=== PATIENT | female | born 1995 | race Caucasian/White ===

== ENCOUNTER 2018-10-18 15:06 | Outpatient (CLI) | payer OTHER ==
--- NOTE | 2018-10-20 12:45 | Ultrasound Report ---
Reason: TEST POSITIVE Procedure Date: 10/18/2018 Accession Number: [id number] / [id number] Procedure: US - OB First Trimester CPT Code: FULL RESULT: EXAM: FIRST TRIMESTER OBSTETRIC ULTRASOUND (LESS THAN 11 WEEKS). EXAM DATE: 10/18/2018 03:31 PM. CLINICAL HISTORY: test positive. LMP: Unknown. COMPARISONS: None. TECHNIQUE: Transabdominal and transvaginal ultrasound examination with static image documentation. CLINICAL DATES: EGA 7 weeks 1 day with WENDI 06/05/2019 based on LMP. ASSESSMENT: Gestational Sac: Single intrauterine. Embryo: CRL (crown-rump length) 7.6 mm = 6 weeks 5 days with an WNEDI of 06/08/2019. Cardiac activity: 154 beats per minute. Yolk sac: 3 mm. Amniotic fluid: Not accurately assessed at this gestational age. Early placenta: Not visible at this gestational age. Other: No perigestational fluid collection demonstrated. MATERNAL STRUCTURES: Uterus: Anteverted. Unremarkable. Cervix: Closed. Right Ovary/Adnexa: The ovary measures 4.1 x 2.9 x 3 cm, volume 18.8 cc. Hypoechoic right ovarian 2.6 x 2 x 2.3 cm cyst. No mural nodules or thickened septations or other concerning features are noted. Left Ovary/Adnexa: The ovary measures 3.2 x 1.3 x 1.3 cm, volume 2.8 cc. Unremarkable. Free Fluid: Small volume free fluid noted in the pelvis. Other: None. IMPRESSION: 1. Single viable intrauterine at EGA 6 weeks 5 days with WENDI 06/08/2019 based on crown-rump length, which is concordant with clinical dates. 2. Assigned dating is WENDI 06/05/2019 based on LMP. 3. No complications such as a subchorionic hemorrhage. 4. 2.6 cm right ovarian hypoechoic cyst. No concerning features. Otherwise, both ovaries and adnexa are normal. RADIA
== END 2018-10-18 15:07 | disposition home or self-care (01) ==
LOC: DI 15:06
PROVIDERS: ATTEND Nurse Practitioner Obstetrics & Gynecology
DX: Z32.01 Encounter for pregnancy test, result positive (principal)
CPT/HCPCS: 76801

== ENCOUNTER 2018-12-18 14:40 | Emergency (ER) | payer OTHER ==
[2018-12-18 14:47] VITALS: BP 127/67
--- NOTE | 2018-12-18 14:48 | ED Physician Documentation ---
History of Present Illness - Stated complaint Stated Complaint: SOA/CHEST TIGHTNESS/16 WKS PREG - Chief complaint Chief Complaint: Abd Pain - Additonal information Additional information: Patient is a 23-year-old female, G1, P0 approximately 16 weeks presenting with gradual onset of chest tightness and shortness of breath, particularly with laying down. Patient denies acid reflux-like symptoms, other chest pain, pleuritic chest pain, active cough, fever. Patient also denies URI symptoms, abdominal pain, vaginal bleeding or discharge, urinary or stool changes. Patient reports that she contacted her PEDIATRIC SOCIAL WORKER who believe this to be related to progressing in her , but came to the ED for further evaluation. No other improving or worsening factors noted. Review of Systems Constitutional: denies: Fever Nose: denies: Rhinorrhea / runny nose, Congestion Throat: denies: Sore throat Cardiac: denies: Chest pain / pressure Respiratory: reports: Dyspnea. denies: Cough GI: denies: Abdominal Pain, Nausea, Vomiting, Diarrhea : denies: Dysuria, Vaginal bleeding PD PAST MEDICAL HISTORY - Past Medical History Past Medical History: No - Past Surgical History Past Surgical History: No - Allergies Allergies/Adverse Reactions: Allergies Allergy/AdvReac Type Severity Reaction Status Date / Time No Known Drug Allergies Allergy Verified 12/18/18 14:47 PD ED PE NORMAL - Vitals Vital signs reviewed: Yes - General General: Alert and oriented X 3, No acute distress, Well developed/nourished - HEENT HEENT: Atraumatic, Moist mucous membranes - Neck Neck: Supple, no meningeal sign - Cardiac Cardiac: RRR, No murmur - Respiratory Respiratory: No respiratory distress, Clear bilaterally - Abdomen Abdomen: Normal bowel sounds, Soft, Non tender, Non distended (Nongravid) - Derm Derm: Normal color, Warm and dry, No rash - Extremities Extremities: No deformity, No tenderness to palpate, No edema - Neuro Neuro: Alert and oriented X 3, No motor deficit, No sensory deficit - Psych Psych: Normal mood, Normal affect Results - Vitals Vitals: Vital Signs - 24 hr 12/18/18 14:43 Temperature 36.8 C Heart Rate 79 Respiratory 19 Rate Blood Pressure 127/67 O2 Saturation 100 Oxygen O2 Source Room air PD MEDICAL DECISION MAKING - ED course Complexity details: considered differential, d/w patient, d/w family ED course: Patient presenting with symptoms relating to normal second trimester . Do not have high suspicion for abnormalities related to the fetus including placental abruption or previa, threatened , miscarriage, or other infection. Do not have high suspicion for gestational hypertension, eclampsia, preeclampsia, help syndrome or other emergent pathology. Do not have high suspicion for sinusitis, URI, pneumonia, ACS, OH, unstable angina, dissection, aneurysm, PE, but considered. At this time, do not feel the risk of imaging is worth the benefit and discussed this at length with patient who also agrees. Additionally, do not feel patient requires other invasive testing. Advised on supportive cares, return precautions, and appropriate follow-up. Departure - Departure Disposition: 01 Home, Self Care Clinical Impression: related condition in second trimester Condition: Good Instructions: Preg 2nd Trimester Follow-Up: Chloe Lema MD [Primary Care Provider] - Within 3 Days Comments: Please continue home medications as instructed including vitamins. Recommend sleeping propped up or with body pillow to help with breathing. Follow-up with PEDIATRIC SOCIAL WORKER the next 2 to 3 days and return to ED sooner if experience worsening symptoms or have other concerns.
== END 2018-12-18 15:18 | disposition home or self-care (01) ==
LOC: ED 14:40
DX: O99.89 Other specified diseases and conditions complicating pregnancy, childbirth and the puerperium (principal); R07.89 Other chest pain; R06.02 Shortness of breath; Z3A.16 16 weeks gestation of pregnancy
CPT/HCPCS: 99282

== ENCOUNTER 2019-01-17 08:36 | Outpatient (CLI) | payer OTHER ==
--- NOTE | 2019-01-20 09:21 | Ultrasound Report ---
Reason: ENCOUNTER FOR OTHER SPECIFIED SCREENING Procedure Date: 01/17/2019 Accession Number: [id number] / [id number] Procedure: US - OB Detailed Eval CPT Code: FULL RESULT: EXAM: COMPLETE OBSTETRICAL ULTRASOUND EXAM DATE: 01/17/2019 12:08 PM. CLINICAL HISTORY: anatomic survey. COMPARISON: OB FIRST TRIMESTER 10/18/2018 3:31 PM. TECHNIQUE: Real-time sonographic evaluation of the fetus performed by the product ambassador. Multiple b2b outside sales representative static images were saved for review. Additional transvaginal imaging to more accurately evaluate cervical length/placental position/etc. DATING: Established EGA 19 weeks 5 days with WENDI 06/08/2019 based on working due date. EGA 20 weeks 1 day with WENDI 06/05/2019 based on LMP. EGA 19 weeks 4 days with WENDI 06/09/2019 based on the current ultrasound. GENERAL EVALUATION Coe . Cardiac activity: 154 bpm. movement: Visualized. Presentation: Breech Placenta: Posterior position. No evidence for previa. Umbilical cord: 3 vessel cord. Central placental cord origin. Amniotic fluid: Subjectively normal. MVP 4.5 and JUDSON 11.5 cm. BIOMETRY Bi-Parietal Diameter (BPD): 4.1 cm, 18 weeks 4 days Head Circumference (HC): 17.2 cm, 19 weeks 5 days Abdominal Circumference (AC): 15.0 cm, 20 weeks 2 days Femur Length (FL): 3.3 cm, 20 weeks 1 day Estimated Weight: 333 g, 69th percentile for 19 weeks 5 days. ANATOMY The intracranial structures, profile, face/nose/lips, spine, 4 chamber heart, stomach, abdominal wall and cord insertion, diaphragm, kidneys, bladder, and extremities were visualized and demonstrate no abnormality. Cardiac outflow tracts were not adequately visualized. MATERNAL STRUCTURES Uterus: Unremarkable. Cervix: Long and closed. Transabdominal length 3.7 cm. Right ovary/adnexa: 1.5 cm cystic structure. Left ovary/adnexa: Unremarkable. Free fluid: None. IMPRESSION: 1. Coe live intrauterine with gestational age 19 weeks 5 days based on working due date. 2. Estimated weight is within expected limits for assigned dating. 3. Incomplete anatomic survey due to position. Cardiac outflow tracts are not adequately visualized. RADIA
== END 2019-01-17 08:37 | disposition home or self-care (01) ==
LOC: DI 08:36
PROVIDERS: ATTEND Nurse Practitioner Obstetrics & Gynecology
DX: Z36.89 Encounter for other specified antenatal screening (principal)
CPT/HCPCS: 76811

== ENCOUNTER 2019-01-28 12:29 | Outpatient (CLI) | payer OTHER ==
[2019-01-28 12:52] LABS: BASOPHILS # (AUTO) 0.1 10^3/uL (0.0-0.1); BASOPHILS % (AUTO) 0.4 %; EOSINOPHILS # (AUTO) 0.3 10^3/uL (0.0-0.7); EOSINOPHILS % (AUTO) 2.7 %; LYMPHOCYTES # (AUTO) 1.6 10^3/uL (1.5-3.5); LYMPHOCYTES % (AUTO) 12.9 %; MEAN CORPUSCULAR HEMOGLOBIN 31.4 pg (27.0-31.0); MEAN CORPUSCULAR HGB CONC 33.1 g/dL (32.0-36.0); MEAN CORPUSCULAR VOLUME 94.9 fL (81.0-99.0); MEAN PLATELET VOLUME 10.5 fL (7.9-10.8); MONOCYTES # (AUTO) 1.1 10^3/uL (0.0-1.0); MONOCYTES % (AUTO) 8.5 %; NEUTROPHILS # (AUTO) 9.3 10^3/uL (1.5-6.6); NEUTROPHILS % (AUTO) 74.6 %; PLT - PLATELET COUNT 220 10^3/uL (130-450); RED CELL DISTRIBUTION WIDTH 12.8 % (12.0-15.0); WHITE BLOOD COUNT 12.5 x10^3/uL (4.8-10.8)
[2019-01-28 12:53] LABS: MUDS CUTOFF CONCENTRATIONS CUTOFF CONC BELOW:
[2019-01-28 12:57] LABS: BILIRUBIN,URINE NEGATIVE (NEGATIVE); GLUCOSE, URINE (UA) NEGATIVE (NEGATIVE); KETONES,URINE (UA) NEGATIVE (NEGATIVE); LEUKOCYTE ESTERASE, URINE NEGATIVE (NEGATIVE); NITRITE,URINE NEGATIVE (NEGATIVE); OCCULT BLOOD,URINE NEGATIVE (NEGATIVE); PROTEIN,URINE NEGATIVE (NEGATIVE); UROBILINOGEN,URINE 0.2 (NORMAL) E.U./dL (NORMAL)
[2019-01-28 12:59] LABS: CLARITY,URINE CLEAR (CLEAR)
[2019-01-28 13:08] LABS: BACTERIA,URINE Rare /HPF (None Seen); RBC,URINE 0-5 /HPF (0-5); SQUAMOUS EPITHELIAL CELL,UR FEW Squamous (<= Few)
[2019-01-28 13:09] LABS: AMPHETAMINE SCREEN,URINE NEGATIVE (NEGATIVE); BENZODIAZEPINES SCREEN, URINE NEGATIVE (NEGATIVE); COCAINE SCREEN URINE NEGATIVE (NEGATIVE); METHADONE SCREEN, URINE NEGATIVE (NEGATIVE); METHAMPHETAMINES SCREEN, URINE NEGATIVE (NEGATIVE); OPIATE SCREEN, URINE NEGATIVE (NEGATIVE); OXYCODONE SCREEN, URINE NEGATIVE (NEGATIVE); PROPOXYPHENE SCREEN, URINE NEGATIVE (NEGATIVE); TRICYCLIC ANTIDEPRESSANT,URINE NEGATIVE (NEGATIVE)
[2019-01-29 11:31] LABS: HEPATITIS B SURFACE ANTIGEN NON-REACTIVE (NON-REACTIVE); HEPATITIS C ANTIBODY NON-REACTIVE (NON-REACTIVE)
[2019-01-29 15:16] LABS: HIV AG/AB 4TH GEN NON-REACTIVE (NON-REACTIVE)
== END 2019-01-28 12:30 | disposition home or self-care (01) ==
LOC: LAB 12:29
PROVIDERS: ATTEND Obstetrics & Gynecology
DX: Z34.00 Encounter for supervision of normal first pregnancy, unspecified trimester (principal); Z36.8A Encounter for antenatal screening for other genetic defects
CPT/HCPCS: 36415; 80306; 81001; 81511; 81599; 85025; 86592; 86762; 86803; 86850; 86900; 86901; 87086; 87340; 87389

== ENCOUNTER 2019-02-10 15:01 | Outpatient (CLI) | payer OTHER ==
--- NOTE | 2019-02-12 10:55 | Ultrasound Report ---
Reason: SUPERVISON NORMAL FIRST , COMPLETION FAS Procedure Date: 02/10/2019 Accession Number: [id number] / [id number] Procedure: US - OB F/U or Repeat CPT Code: FULL RESULT: EXAM: FOLLOW-UP OBSTETRICAL ULTRASOUND EXAM DATE: 02/10/2019 03:36 PM. CLINICAL HISTORY: SUPERVISION NORMAL FIRST , COMPLETION FAS. COMPARISON: OB DETAILED EVAL 01/17/2019 9:10 AM. TECHNIQUE: Real-time sonographic evaluation of the fetus performed by the motion picture projectionist apprentice. Multiple front office representative static images were saved for review. DATING: Established EGA 23 weeks, 4 days with WENDI 06/05/2019 based on LMP. EGA 23 weeks, 1 day with WENDI 06/08/2019 based on prior ultrasound. GENERAL EVALUATION Coe . Cardiac activity: 157 bpm. movement: Visualized. Presentation: Cephalic. Placenta: Posterior position. Amniotic fluid: Normal. JUDSON 14.6 cm. MVP 4.3 cm. BIOMETRY: Not measured today. ANATOMY Right ventricular outflow tract was not well seen due to positioning. Left ventricular outflow tract, 4 chamber view of heart and aortic arch appeared unremarkable. MATERNAL STRUCTURES No abnormality evident. IMPRESSION: 1. Coe live intrauterine with gestational age 23 weeks, 4 days based on LMP. 2. Left ventricular outflow tract, 4 chamber view of heart and aortic arch appeared unremarkable. 3. anatomic survey remains incomplete. Right ventricular outflow tract was not well seen due to positioning. RADIA
== END 2019-02-10 15:02 | disposition home or self-care (01) ==
LOC: DI 15:01
PROVIDERS: ATTEND Obstetrics & Gynecology
DX: Z34.00 Encounter for supervision of normal first pregnancy, unspecified trimester (principal)
CPT/HCPCS: 76816

== ENCOUNTER 2019-03-04 15:46 | Outpatient (CLI) | payer OTHER ==
--- NOTE | 2019-03-06 08:15 | Ultrasound Report ---
Reason: SCREENING, F/U TO EVAL RVOT Procedure Date: 03/04/2019 Accession Number: [id number] / [id number] Procedure: US - OB F/U or Repeat CPT Code: FULL RESULT: EXAM: FOLLOW-UP OBSTETRICAL ULTRASOUND EXAM DATE: 03/04/2019 04:24 PM. CLINICAL HISTORY: SCREENING, F/U TO EVAL RVOT. COMPARISON: None. TECHNIQUE: Real-time sonographic evaluation of the fetus performed by the room service food service attendant. Additional transvaginal imaging to more accurately evaluate cervical length/placental position/etc. Multiple reimbursement representative static images were saved for review. DATING: Established EGA 26 weeks 2 days with WENDI 06/08/2019 based on reported dating from provider. EGA 27 weeks 1 day with WENDI 06/02/2019 based on the current ultrasound. GENERAL EVALUATION Coe . Cardiac activity: 140 bpm. movement: Visualized. Presentation: Cephalic. Placenta: Posterior fundal position. Amniotic fluid: Normal. JUDSON 12.4 cm. MVP 4.5 cm. BIOMETRY Bi-Parietal Diameter (BPD): 6.7 cm, 27 weeks 0 days Head Circumference (HC): 25.3 cm, 27 weeks 3 days Abdominal Circumference (AC): 22.7 cm, 27 weeks 1 day Femur Length (FL): 5.1 cm, 27 weeks 1 day Estimated Weight: 1037 g, 76 percentile for weeks/days. ANATOMY Four-chamber heart, LVOT, RVOT normal. No pericardial effusion IMPRESSION: 1. Coe live intrauterine with gestational age 26 weeks 2 days based on reported dating 2. Estimated weight is within expected limits for assigned dating. 3. Follow-up showed normal cardiac exam including four-chamber heart, LVOT, RVOT. DELANEY
== END 2019-03-04 15:47 | disposition home or self-care (01) ==
LOC: DI 15:46
PROVIDERS: ATTEND Nurse Practitioner Obstetrics & Gynecology
DX: Z36.89 Encounter for other specified antenatal screening (principal)
CPT/HCPCS: 76816

== ENCOUNTER 2019-03-05 10:56 | Outpatient (CLI) | payer OTHER ==
[2019-03-05 12:27] LABS: HGB - HEMOGLOBIN 9.8 g/dL (12.0-16.0); MEAN CORPUSCULAR HEMOGLOBIN 29.3 pg (27.0-31.0); MEAN CORPUSCULAR HGB CONC 31.6 g/dL (32.0-36.0); MEAN CORPUSCULAR VOLUME 92.8 fL (81.0-99.0); MEAN PLATELET VOLUME 10.3 fL (7.9-10.8); RED BLOOD COUNT 3.34 10^6/uL (4.20-5.40); RED CELL DISTRIBUTION WIDTH 12.3 % (12.0-15.0); WHITE BLOOD COUNT 11.1 x10^3/uL (4.8-10.8)
== END 2019-03-05 10:57 | disposition home or self-care (01) ==
LOC: LAB 10:56
PROVIDERS: ATTEND Nurse Practitioner Obstetrics & Gynecology
DX: Z36.89 Encounter for other specified antenatal screening (principal)
CPT/HCPCS: 36415; 82950; 85027; 86850

== ENCOUNTER 2019-04-01 09:00 | Outpatient (CLI) | payer OTHER | END 2019-04-01 23:59 | disposition home or self-care (01) | LOC: LAB.R 09:00 | PROVIDERS: ATTEND Nurse Practitioner Obstetrics & Gynecology | DX: R82.79 Other abnormal findings on microbiological examination of urine (principal) | CPT/HCPCS: 87086 ==

== ENCOUNTER 2019-04-07 12:27 | Outpatient (CLI) | payer OTHER | END 2019-04-07 12:28 | disposition home or self-care (01) | LOC: LAB 12:27 | PROVIDERS: ATTEND Nurse Practitioner Obstetrics & Gynecology | DX: R82.79 Other abnormal findings on microbiological examination of urine (principal) | CPT/HCPCS: 87086 ==

== ENCOUNTER 2019-05-12 08:00 | Outpatient (CLI) | payer OTHER ==
[2019-05-14 18:24] LABS: TRICHOMONAS VAGINALIS DNA NEGATIVE (NEGATIVE)
== END 2019-05-12 23:59 | disposition home or self-care (01) ==
LOC: LAB.R 08:00
PROVIDERS: ATTEND Nurse Practitioner Obstetrics & Gynecology
DX: Z36.85 Encounter for antenatal screening for Streptococcus B (principal)
CPT/HCPCS: 87491; 87591; 87661; 87797

== ENCOUNTER 2019-05-27 09:30 | Outpatient (CLI) | payer OTHER ==
[2019-05-27 16:49] LABS: BILIRUBIN,URINE NEGATIVE (NEGATIVE); GLUCOSE, URINE (UA) NEGATIVE (NEGATIVE); KETONES,URINE (UA) NEGATIVE (NEGATIVE); LEUKOCYTE ESTERASE, URINE MODERATE (NEGATIVE); NITRITE,URINE NEGATIVE (NEGATIVE); OCCULT BLOOD,URINE NEGATIVE (NEGATIVE); PROTEIN,URINE NEGATIVE (NEGATIVE); UROBILINOGEN,URINE 0.2 (NORMAL) E.U./dL (NORMAL)
[2019-05-27 16:50] LABS: CLARITY,URINE HAZY (CLEAR)
[2019-05-27 17:31] LABS: AMORPHOUS SEDIMENT,UR Rare /LPF; BACTERIA,URINE Many /HPF (None Seen); RBC,URINE 0-5 /HPF (0-5); SQUAMOUS EPITHELIAL CELL,UR MANY Squamous (<= Few)
== END 2019-05-27 23:59 | disposition home or self-care (01) ==
LOC: LAB.R 09:30
PROVIDERS: ATTEND Obstetrics & Gynecology
DX: Z34.00 Encounter for supervision of normal first pregnancy, unspecified trimester (principal); R30.0 Dysuria
CPT/HCPCS: 81001; 81003; 87086

== ENCOUNTER 2019-06-03 09:40 | Outpatient (CLI) | payer OTHER ==
[2019-06-03 09:54] VITALS: BP 127/77
--- NOTE | 2019-06-04 13:27 | PROCEDURE REPORT ---
- HPI Current [facility] 06/08/19 Gestation 39 Weeks and 2 Days 1 Para 0 Vital Signs Temperature 36.8 C 06/03/19 09:50 Heart Rate 87 06/03/19 09:50 Respiratory Rate 18 06/03/19 09:50 Blood Pressure 127/77 06/03/19 09:50 Temperature 36.8 C 06/03/19 09:50 Heart Rate 87 06/03/19 09:50 Respiratory Rate 18 06/03/19 09:50 Blood Pressure 127/77 06/03/19 09:50 O2 Saturation - NST Procedure NST Procedure Start Date 06/03/19 Start Time 09:47 Stop Time 10:25 Vibroacoustic Stimulation Used Yes Patient States Movement Yes - Results and Plan Plan: - HPI Diagnosis/Indication for NST: Decreased movement - NST Procedure NST Procedure Start Time 09:47 Stop Time 10:25 - Results and Plan Findings/Impression: NST reactive. Baseline 145, moderate variability, + accels, no decels Plan: Jian presents to [facility] as directed from [facility] following her routine visit at which time she reported significantly decreased movement over the last 24 hours. She states she is feeling some movement and is feeling like her abdomen is somewhat numb due to stretching. She has not kept her hands on her abdomen in attempt to palpate movement. NST performed 06/03/2019. NST read 06/03/2019 NST reactive. Baseline 145, moderate variability, + accels, no decels. Pt released home with precautions. Advised kick counting and reviewed when to return. Pt verbalized understanding and agrees to above plan. She denies further questions or concerns at this time. FINAL DIAGNOSIS: Decreased movement at term gestation.
== END 2019-06-03 10:40 | disposition home or self-care (01) ==
LOC: WFO 09:40 → FBP 09:42 → WFO 10:40
PROVIDERS: ATTEND Nurse Practitioner Obstetrics & Gynecology
DX: O36.8130 Decreased fetal movements, third trimester, not applicable or unspecified (principal); Z3A.39 39 weeks gestation of pregnancy
CPT/HCPCS: 59025

== ENCOUNTER 2019-06-03 20:21 | Inpatient (IN) | payer OTHER ==
[2019-06-03] MEDS ORDERED: OXYTOCIN/DEXTROSE 5 % 30 UNIT/500 ML BAG IV ONE (21:08)
[2019-06-03] MEDS ORDERED: LIDOCAINE-MPF 1% 30 ML VIAL ONE (22:11)
[2019-06-03] MEDS ORDERED: SODIUM CHLORIDE FLUSH 0.9% 10 ML SYRINGE IVP PRN (22:50)
[2019-06-03] MEDS ORDERED: HYDROCORTISONE 1% CREAM 28 GM TUBE PR PRN (22:52)
[2019-06-03] MEDS ORDERED: WITCH HAZEL/GLYCERIN 1 PAD TOP PRN (22:52)
[2019-06-03] MEDS ORDERED: LACTATED RINGERS 1,000 ML IV SCH (23:00)
--- NOTE | 2019-06-03 23:04 | HISTORY & PHYSICAL EXAMINATION ---
Admit History - Visit Reason Visit Reason: Contractions, Membranes rupture - : 1 Parity: 0 Premature: 0 Ectopic: 0 : 0 Care: positive: [facility] Risk/History: positive: None Complications This : positive: None Smoking Status: Never smoker - Mother's Labs Mother's Blood Type: positive: O Mother's RH: positive: Positive GBS: positive: Group B Step Negative Rubella Status: positive: Immune Meds/Allgy - Allergies Allergies/Adverse Reactions: Allergies Allergy/AdvReac Type Severity Reaction Status Date / Time No Known Drug Allergies Allergy Verified 12/18/18 14:47 Review of Systems - Constitutional Constitutional: denies: Fatigue, Fever, Chills, Malaise - Eyes Eyes: denies: Blurred vision, Spots in vision, Dipolpia - Cardiovascular Cariovascular: denies: Chest pain, Edema - Respiratory Respiratory: denies: SOB at rest - Gastrointestinal Gastrointestinal: denies: Abdominal pain, Abdominal distention, Constipation, Diarrhea, Nausea, Vomiting - Integumentary Integumentary: denies: Rash, Pruritis - Neurological Neurological: denies: Headache Physical - Abdominal Exam Contraction Frequency (min/apart): 2-4 Contraction Intensity: positive: Strong Uterine Resting Tone: positive: Soft - Monitoring Heart Rate Baseline: 135 Strip Review: positive: Category I - Presentation Presentation: positive: Vertex - Vaginal Exam Membranes: positive: Membranes ruptured Dilation (in cm): 8 Effacement (%): 100 Station: positive: 0 Cervical Position: positive: Anterior - Speculum Exam Speculum Exam Performed: positive: No Findings: positive: Gross leak Plan for Labor - Plan For Labor I expect patient to be DC'd or transferred within 96 hours.: Yes Plan for Labor: HPI: Jian is a 24yo @ 39.2wks gestation by 6.5wk U/S presents to [facility] with c/o contractions which have increased in frequency and intensity since 1000 this afternoon. She reports the contractions really began to moss picker at approximately 1800 this evening. Reports vaginal leakage of clear fluid at 2000. Upon arrival she was noted to have grossly ruptured membranes and cervix was 8/100/0, vertex. She was admitted to [facility] for expectant management. She has been a patient of [facility] through the duration of her which has been uncomplicated. Dating Criteria: LMP unknown Initial ultrasound at 6.5wks gestation Serial exams: agree OB Hx: G1: Current PMHx: Surgical Hx: Social Hx: Family Hx: course: Initial U/S: 10/18/2018 @ 6.5wks gives WENDI 06/08/2019. LMP unknown. O pos/Rubella immune Gentic testing: Quad screen negative FAS: 01/17/19 WNL with the exception of poor visualization of cardiac outflow tracts., 3VC. Posterior placenta, no previa. Size c/w dating. 02/10/2019 f/u left outflow tract visualized and WNL. Right outflow tract not well visualized. 03/04/2019 f/u WNL. All cardiac structures visualized and WNL. Glucola WNL Influenza 02/25/2019 TDAP 03/18/2019 GBS & GC/CT neg x 3 HSV: denies Breast pump Rx provided MOD: Anticipate Physical Exam: Normocephalic, atraumatic Heart RRR w/o M/G/R Lungs CTAB Abdomen gravid, soft, nontender SVE 8/100/0, vertex Grossly ruptured membranes with moderate amount of clear fluid Contractions palpate strong every 2-4 minutes with soft resting tone Bilateral LE's no edema present and supportive at the bedside Assessment: 24yo @ 39.2 wks gestation by 6.5wk U/S Active labor GBS neg Plan: Admit to [facility] for expectant managment Continuous monitoring Anticipate
--- NOTE | 2019-06-03 23:12 | DELIVERY NOTE ---
Delivery Note - Labor Labor: positive: Spontaneous - Delivery Method Delivery Method: positive: Spontaneous vaginal delivery - Presentation Presentation: positive: Vertex, NICK - left occiput anterior - Nuchal Cord Nuchal Cord: positive: None - Amniotic Fluid Description Amniotic Fluid Description: positive: Clear - Episiotomy Type Episiotomy Type: positive: None - Laceration Laceration: positive: 2nd degree, Vaginal - Suture Suture Type: positive: Vicryl Suture Size: positive: 2-0 - Delivery Outcome Delivery Outcome: positive: Livebirth - [place]: positive: Placed in direct skin contact with mother, Bulb syringe, Stimulated, Warmed, [place] used [place] sex: positive: Male - Cord Cord: positive: 3 vessels - Estimated Blood Loss Estimated Blood Loss (in cc): 250 - Post Delivery Events Post Delivery Events: positive: No post delivery events - Delivery Comments (Free Text/Narrative) Delivery Comments (Free Text/Narrative): Labor: This 24yo @ 39.2wks gestation by 6.5wk U/S presented to [facility] at 2024 on 06/03/2019 in active labor with grossly rupture membranes which occurred at 1999. Cervix was 8/100/0, vertex. FHR pattern demonstrated Category I pattern throughout labor. Normal labor course. Patient progressed to complete with anterior lip and spontaneous urge to push at 2107 which was reduced and c/c/+1 a t 2118. : Normal of viable male infant on 06/03/2019 @ 2200. No nuchal cord. The was stimulated, dried, and placed skin to skin. 's were 9/9 at 1 and 5 minutes respectively. The umbilical cord was allowed to stop pulsating at which time it was doubly clamped by CNM and cut by FOB. Pitocin administered via IV for hemostasis. Cord blood was obtained. Placenta delivered spontaneously and intact at 2208. 3VC. EBL 250mL. Fourth stage: Uterine fundus firm and there is no excessive bleeding. The perineum, vagina, and cervix were inspected and found to have 2nd degree vaginal laceration which was repaired using a 2-[address]-1 needle in standard fashion under sterile conditions. Vaginal examination following repair completed and tissues well approximated. initiated. Family bonding well. Both mother and baby were left in stable condition.
[2019-06-04] MEDS ORDERED: SODIUM CHLORIDE FLUSH 0.9% 10 ML SYRINGE IVP SCH (01:00)
[2019-06-04] MEDS: ACETAMINOPHEN 500 MG TABLET PO SCH ×3 (01:48→22:44)
[2019-06-04] MEDS: IBUPROFEN 800 MG TABLET PO SCH ×3 (01:48→22:44)
[2019-06-04] MEDS ORDERED: LIDOCAINE 1% 2 ML VIAL SUBQ ONE (05:32)
--- NOTE | 2019-06-04 06:18 | PROVIDER PROGRESS NOTE ---
Subjective - Subjective Subjective: S: Bonding well with baby. Struggling slightly with and getting baby to latch. Has been given the nipple shield which she feels is helping to get a deeper latch. Has attempted to feed without success twice throughout the night and is currently feeding with baby latched and actively nursing currently. She reports slight perineal discomfort but is improving and feels her pain is well controlled with oral medications. She states her bleeding is like a menstrual cycle with one small clot noted. Her mood is good and she states she is overall feeling very well. Plans to utilize the help of nursing staff today with . O: Heart RRR w/o M/G/R, lungs CTAB, abdomen soft and nontender with fundus firm at U. Light lochia rubra. Bilateral LE's no edema. BP 125/65, HR 86, T 37.1, RR 18 A: 24yo -->P1 PPD#1 s/p TSVD of viable male 2nd degree vaginal laceration - intact P: Continue routine pp care and medications. Special attention to today. Evaluate for discharge home tomorrow. Pt verbalized understanding and denies questions or concerns at this time. Objective - Vital Signs/Intake & Output Vital Signs: Vital Signs x48h Temp Pulse Resp BP Pulse Ox 06/04/19 03:25 37.1 C 86 18 125/65 97
[2019-06-04] MEDS: DOCUSATE SODIUM 100 MG CAPSULE PO SCH ×2 (09:44→22:21)
--- NOTE | 2019-06-04 10:11 | PROCEDURE REPORT ---
- HPI Diagnosis/Indication for NST: Decreased movement - NST Procedure NST Procedure Start Time 09:47 Stop Time 10:25 - Results and Plan Findings/Impression: NST reactive. Baseline 145, moderate variability, + accels, no decels Plan: Jian presents to [facility] as directed from [facility] following her routine visit at which time she reported significantly decreased movement over the last 24 hours. She states she is feeling some movement and is feeling like her abdomen is somewhat numb due to stretching. She has not kept her hands on her abdomen in attempt to palpate movement. NST performed 06/03/2019. NST read 06/03/2019 NST reactive. Baseline 145, moderate variability, + accels, no decels. Pt released home with precautions. Advised kick counting and reviewed when to return. Pt verbalized understanding and agrees to above plan. She denies further questions or concerns at this time. FINAL DIAGNOSIS: Decreased movement at term gestation.
--- NOTE | 2019-06-04 10:12 | HISTORY & PHYSICAL EXAMINATION ---
Admit History - Visit Reason Visit Reason: Contractions, Membranes rupture - : 1 Parity: 0 Premature: 0 Ectopic: 0 : 0 Care: positive: [facility] Risk/History: positive: None Complications This : positive: None Smoking Status: Never smoker - Mother's Labs Mother's Blood Type: positive: O Mother's RH: positive: Positive GBS: positive: Group B Step Negative Rubella Status: positive: Immune Meds/Allgy - Allergies Allergies/Adverse Reactions: Allergies Allergy/AdvReac Type Severity Reaction Status Date / Time No Known Drug Allergies Allergy Verified 12/18/18 14:47 Review of Systems - Constitutional Constitutional: denies: Fatigue, Fever, Chills, Malaise - Eyes Eyes: denies: Blurred vision, Spots in vision, Dipolpia - Cardiovascular Cariovascular: denies: Chest pain, Edema - Respiratory Respiratory: denies: SOB at rest - Gastrointestinal Gastrointestinal: denies: Change in bowel habits, Nausea, Vomiting - Integumentary Integumentary: denies: Rash, Pruritis - Neurological Neurological: denies: Headache Physical - Abdominal Exam Contraction Frequency (min/apart): 2-4 Contraction Intensity: positive: Strong Uterine Resting Tone: positive: Soft - Monitoring Heart Rate Baseline: 140 Strip Review: positive: Category I - Presentation Presentation: positive: Vertex - Vaginal Exam Membranes: positive: Membranes ruptured Dilation (in cm): 8 Effacement (%): 100 Station: positive: 0 Cervical Position: positive: Anterior - Speculum Exam Speculum Exam Performed: positive: No Findings: positive: Gross leak Plan for Labor - Plan For Labor I expect patient to be DC'd or transferred within 96 hours.: Yes
--- NOTE | 2019-06-05 09:05 | Discharge Plan ---
Discharge Plan Problem Reviewed?: Yes Disposition: Home, Self Care Condition: Good Diet: Regular Activity Restrictions: No Restrictions Shower Restrictions: No Driving Restrictions: No Weight Bearing: Full Weight No Smoking: If you smoke, Please STOP! Call for help. Follow-up with: Dania Rios CNM, ARNP [Provider Admit Priv/Credential] -
--- NOTE | 2019-06-05 09:11 | PROVIDER PROGRESS NOTE ---
Subjective - Subjective Subjective: FINAL PROGRESS NOTE: S: Bonding well with baby. with some difficulty getting baby to latch and stay latched. Reports the nipple shield helps and has been using SNS system for supplementation. She states she is feeling much better knowing that she is able to feed her baby even if that includes formula supplementation. Bleeding is decreased and is light. Her pain is well controlled with oral medications. She states she would love to be able to go home later today and is willing to come back for a weight check and support tomorrow. O: BP 123/73, T 36.4, HR 82, RR 16 Heart RRR w/o M/G/R, lungs CTAB, abdomen soft and nontender with fundus firm at U-1, light lochia rubra, bilateral LE's no edema. A: 24yo -->P1 PPD#1 s/p TSVD of viable male 2nd degree vaginal laceration - intact P: Reviewed pp self care and warning s/sx Advised continuation of PNV while Advised OTC ibuprofen and tylenol as needed for pain managment F/u in 1 week for support visit at [facility], [place] and in 3 weeks for routine pp visit or sooner PRN. Reviewed plan of care and discharge teaching with pt and supportive at the bedside. They both verbalized understanding and agree to above plan. They deny further questions or concerns at this time. Objective - Vital Signs/Intake & Output Vital Signs: Vital Signs x48h Temp Pulse Resp BP Pulse Ox 06/05/19 05:21 36.4 C L 82 16 123/73 98 Intake & Output: Intake & Output 06/02/19 06/03/19 06/04/19 06/05/19 23:59 23:59 23:59 23:59 Output Total 290 Balance -290
--- NOTE | 2019-06-05 09:55 | DISCHARGE SUMMARY ---
Physician: JAIDA Aly DATE OF ADMISSION: 06/03/2019 DATE OF DISCHARGE: 06/05/2019 DIAGNOSES ON ADMISSION 1. A 24-year-old, G1, P0, at 39.2 weeks gestation. 2. Active labor. 3. Spontaneous rupture of membranes. DIAGNOSES ON DISCHARGE 1. A 24-year-old, G1, P1-0-0-1, status post spontaneous vaginal delivery on 06/03/2019. 2. . 3. Normal recovery. BRIEF HISTORY: She is a patient of [facility] who presented on 06/03/2019 in active labor with grossly ruptured amniotic fluid membranes. Cervix upon arrival was noted to be 8 cm dila geni, 100% effaced, 0 station, vertex position. Normal labor course. Patient progressed to spontaneo usly deliver a viable male infant on 06/03/2019 at 2200. Apgars were 9 and 9 at 1 and 5 minutes resp ectively. EBL 250 mL. The perineum, vagina and cervix were inspected and found to have a second-deg ree vaginal laceration, which was repaired using a 2-0 Vicryl on a CT1 needle in standard fashion und er sterile conditions. She has been doing well in her course. She is ambulating and tolerating a regular diet. She is urinating without difficulty and her lochia is normal. Her pain is well controlled with oral medications. She has been advised to continue her vitamin while , and to take ibuprofen and Tylenol [id number] as needed for pain management. She intends to followup with rick cohen at [facility] in 1 week for support visit and in 3 weeks for routine visit or sooner if needed. She has been given precautions to call if she has any worseni ng fevers, chills, abdominal pain, increased bleeding or foul-smelling vaginal lochia. TD: 06/05/2019 09:17
[2019-06-05] MEDS: DOCUSATE SODIUM 100 MG CAPSULE PO SCH (12:00)
[2019-06-05] MEDS: IBUPROFEN 800 MG TABLET PO SCH (12:00)
[2019-06-05] MEDS: ACETAMINOPHEN 500 MG TABLET PO SCH (12:00)
[2019-06-05 14:38] VITALS: BP 114/75
--- NOTE | 2019-06-05 19:11 | Labor Flowsheet ---
Labor Flowsheet Datetime Report Generated by CPN: 06/05/2019 19:10 Datetime: 06/03/2019 23:30 VITAL SIGNS NBP Sys/Aminta/Mean (mmHg): 149 : 75 : 91 Pulse: 99 COMMUNICATION LaborFlag: Labor
== END 2019-06-05 19:00 | disposition home or self-care (01) | DRG 807 ==
LOC: WFO 20:21 → FBP 20:22 → UNDOADMIN 21:00 → FBP 21:00 → WFO 21:59 → FBP 22:50 → UNDODISIN 06-05 19:00
PROVIDERS: ADMIT Nurse Practitioner Obstetrics & Gynecology; ATTEND Nurse Practitioner Obstetrics & Gynecology
PROC: 10E0XZZ Delivery of Products of Conception, External Approach (ICD-10-PCS; principal; 2019-06-03)
PROC: 0KQM0ZZ Repair Perineum Muscle, Open Approach (ICD-10-PCS; 2019-06-03)
DX: O70.1 Second degree perineal laceration during delivery (principal); Z37.0 Single live birth; Z3A.39 39 weeks gestation of pregnancy
CPT/HCPCS: A9270 ×7; 85025; 99213